=== PATIENT | female | born 1980 | race Caucasian/White ===

== ENCOUNTER 2017-06-19 11:51 | Observation (INO) | payer OTHER ==
[~2017-06-19] VITALS: Ht 162.6 cm; Wt 105.3 kg
[~2017-06-19 11:51] MED LIST: ALBUTEROL17 GM IH; ATARAX,VISTARIL25 MG PO; CELEXA; CYMBALTA60 MG PO; DICYCLOMINE HCL20 MG PO; FLOVENT; IMITREX6 MG/0.53 SC; LAMOTRIGINE25 MG; NEXIUM20 MG PO; RITALIN LA20 MG PO; RITALIN20 MG PO; TOPAMAX50 MG PO; TRAZODONE; VERAPAMIL HCL120 M1 PO; ZYRTEC; ZYRTEC10 M3 PO
[2017-06-19 12:43] LABS: APPEARANCE CLEAR ((CLEAR)); BILIRUBIN NEGATIVE; BLOOD NEGATIVE; COLOR YELLOW ((YELLOW)); GLUCOSE (STRIP) NEGATIVE; KETONES NEGATIVE; LEUKOCYTES NEGATIVE; NITRITE NEGATIVE; PROTEIN (STRIP) NEGATIVE; UCUL ADDED? NO; UROBILINOGEN 0.2 MG/DL (0.2-1.0)
[2017-06-19 13:30] LABS: HEMATOCRIT 41.9 % (36.0-46.0); HEMOGLOBIN 13.5 G/DL (11.9-15.5); MCH 27.3 PG (29.0-34.0); MCHC 32.2 G/DL (30.0-36.0); MCV 84.6 FL (83-99); PLATELET COUNT 355 K/uL (156-360); RBC DIS.WIDTH-CV 14.1 % (11.8-14.6); RBC DIS.WIDTH-SD 43.6 % (39-53); RED BLOOD COUNT 4.95 M/uL (3.80-5.20); WHITE BLOOD COUNT 13.6 K/uL (4.1-10.2)
[2017-06-19 13:39] LABS: CHLORIDE 112 mEq/L (99-109); POTASSIUM 4.6 mEq/L (3.7-5.4); SODIUM 142 mEq/L (136-147)
[2017-06-19 13:40] LABS: GLUCOSE 155 mg/dL (70-99)
[2017-06-19 13:44] LABS: CREATININE 0.8 mg/dL (0.6-1.3); GFR ESTIMATE (CALCULATED) > 59 mL/min/
[2017-06-19 13:45] LABS: UREA NITROGEN (BUN) 15 mg/dL (9-23)
[2017-06-19 13:52] LABS: QUANTITATIVE HCG < 4.0 MIU/ML
[2017-06-19 14:00] LABS: ALBUMIN 4.1 g/dL (3.2-4.8)
[2017-06-19 14:03] LABS: TOTAL PROTEIN 7.3 g/dL (6.4-8.3)
[2017-06-19 14:04] LABS: TOTAL BILIRUBIN 0.2 mg/dL (0.0-1.0)
[2017-06-19 14:06] LABS: ALKALINE PHOSPHATASE 84 IU/L (3-129)
[2017-06-19 14:08] LABS: AST (GOT) 16 IU/L (2-34); DIRECT BILIRUBIN 0.1 mg/dL (0.0-0.3)
[2017-06-19 14:09] LABS: ALT (GPT) 23 IU/L (3-49)
[2017-06-19 16:36] LABS: LIPASE 29 U/L (1.0-51.0)
[2017-06-19] MEDS ORDERED: ADVIL200 MG PO (16:42)
[2017-06-19] MEDS ORDERED: METHYLPHENIDATE36 MG PO (16:54)
[2017-06-19 22:36] VITALS: BP 116/72
[2017-06-19 22:38] VITALS: BP 126/59
[2017-06-20 03:18] VITALS: BP 112/59
[2017-06-20 07:55] VITALS: BP 116/58
[2017-06-20] MEDS ORDERED: COLACE100 MG PO (09:55)
[2017-06-20] MEDS ORDERED: ONDANSETRON HCL8 MG PO (09:55)
[2017-06-20] MEDS ORDERED: DILAUDID4 MG PO (09:55)
[2017-06-20 12:29] VITALS: BP 142/77
[2017-06-20 13:10] VITALS: BP 142/77
== END 2017-06-20 14:40 | disposition home or self-care (01) ==
LOC: EME 11:51 → ENRESERV 17:04 → SDC 18:14 → EME 18:14 → EDOF 19:25 → ENRESERV 21:09 → 3EAST 22:19 → ENPENDDIS 06-20 → 3EAST 06-20 14:40
PROVIDERS: Surgery
PROC: 0FT44ZZ Resection of Gallbladder, Percutaneous Endoscopic Approach (ICD-10-PCS; principal; 2017-06-20)
DX: K80.12 Calculus of gallbladder with acute and chronic cholecystitis without obstruction (principal); K21.9 Gastro-esophageal reflux disease without esophagitis; G47.419 Narcolepsy without cataplexy; F41.9 Anxiety disorder, unspecified; F32.9 Major depressive disorder, single episode, unspecified; F17.200 Nicotine dependence, unspecified, uncomplicated; Z88.0 Allergy status to penicillin; Z88.2 Allergy status to sulfonamides
CPT/HCPCS: 76705; 80048; 80076; 81003; 82948; 83690; 84702; 85027; 88304; 93005; 99281; 99285; G0378; J0330; J1100; J1170; J1200; J1956; J2270; J2405; J2710; J3010; J3370; J7030; J7120; S0030